=== PATIENT | female | born 1980 | race Caucasian/White ===

== ENCOUNTER 2022-12-23 10:51 | Emergency (ER) | payer OTHER, SELFPAY ==
[2022-12-23 11:08] VITALS: BP 137/94; PULSE 103; RESP 18; TEMP 36.3; O2SAT 98
--- NOTE | 2022-12-23 11:28 | ED_ITS ---
HPI - Back Pain/Injury General Chief Complaint: Back Injury/Pain Stated Complaint: Lower back pain Time Seen by Provider: 12/23/22 11:18 History of Present Illness HPI Narrative: This 42-year-old female comes in with shocks of pain that occur in her low back and sometimes radiate down her left leg. She is from [place] and does speak sufficient anguish. She states that she had symptoms like this 5 years ago and did have an MRI showing lumbar radiculopathy at L5 and S1. She states that there was no recent injury event or strenuous activity. Her symptoms began yesterday. She does not report pain and states that she does not feel pain so much but has a feeling of a shock or jolt that occurs occasionally. She is otherwise in good health. Related Data Previous Rx's Medication Instructions Recorded cyclobenzaprine 10 mg tablet 10 mg PO TID #15 tabs 12/23/22 ketorolac 10 mg tablet 10 mg PO Q8H 5 days #15 tabs 12/23/22 methylprednisolone 4 mg tablets in See Rx Instructions PO .COMPLEX 12/23/22 a dose pack (Medrol (Ihsan)) #21 ea Allergies Allergy/AdvReac Type Severity Reaction Status Date / Time No Known Drug Allergies Allergy Verified 12/23/22 11:07 Review of Systems Status of ROS: Reports: 10 or more systems reviewed and unremarkable except as noted in History and below Narrative: Constitutional: No fevers, no weight gain or loss. Eyes: No discharge. No vision changes. HENT: No congestion, no sore throat, no ear pain. Cardiovascular: No chest pain, no palpitations. Respiratory: No shortness of breath, no wheezes, no cough. Gastrointestinal: No abdominal pain, no vomiting, no diarrhea. Genitourinary: No dysuria, no hematuria. Musculoskeletal: Normal range of motion. Low back pain as described above. Skin: No rashes, no pruritis. Neurological: No dizziness, weakness, sensory change, speech change. Endo/Heme/Allergies: No bruising or bleeding. No polydipsia. Pysch: no suicidality, no anxiety, no insomnia. All other systems reviewed and are negative. Exam Narrative: Exam Narrative: Constitutional: Well-developed, well-nourished, no acute distress. HEENT: Normocephalic, atraumatic. Neck: Normal range of motion. Nontender. Supple. Heart: Regular. No murmurs. Normal rate. Intact distal pulses. Lungs: Clear to auscultation. No chest discomfort. No wheezes, rhonchi, or rales. Abdomen: Normal bowel sounds. Nontender. No rebound tenderness. Genitalia: Deferred. Back: Patient reports symptoms in the low back that occasionally radiates down her left leg. Extremities: Normal range of motion. No injury. Skin: Intact. No rash. Warm. No erythema or pallor. Neurologic: No altered sensation. No weakness. Alert and oriented. Psychiatric: No suicidality. No anxiety or depression. No insomnia. Nursing notes and vitals signs are reviewed. Const: Vital Signs, click to edit/add: Vital Signs - 24 hr 12/23/22 11:08 Temperature 97.4 F L Pulse Rate [Right Pulse Oximeter] 103 H Respiratory Rate 18 Blood Pressure [Ri ght Upper Arm] 137/94 H Pulse Oximetry 98 Oxygen Delivery Me thod Room Air Course Vital Signs Vital signs: Initial Vital Signs Temperature 97.4 F L 12/23/22 11:08 Temperature Source Temporal Artery Scan 12/23/22 11:08 Pulse Rate 103 H 12/23/22 11:08 Respiratory Rate 18 12/23/22 11:08 Blood Pressure 137/94 H 12/23/22 11:08 Blood Pressure Mean 108 H 12/23/22 11:08 Blood Pressure Position Sitting 12/23/22 11:08 Pulse Oximetry 98 12/23/22 11:08 Oxygen Delivery Method Room Air 12/23/22 11:08 Vital Signs Temperature 97.4 F L 12/23/22 11:08 Pulse Rate 103 H 12/23/22 11:08 Respiratory Rate 18 12/23/22 11:08 Blood Pressure 137/94 H 12/23/22 11:08 Pulse Oximetry 98 12/23/22 11:08 Oxygen Delivery Method Room Air 12/23/22 11:08 Temperature 97.4 F L 12/23/22 11:08 Pulse Rate 103 H 12/23/22 11:08 Respiratory Rate 18 12/23/22 11:08 Blood Pressure 137/94 H 12/23/22 11:08 Pulse Oximetry 98 12/23/22 11:08 Oxygen Delivery Method Room Air 12/23/22 11:08 MDM - Back Pain/Injury MDM Narrative Medical decision making narrative: This patient comes in with symptoms that are recurrent from an episode about 5 years ago at which time MRI showed evidence of a lumbar radiculopathy at L5 and S1. There was no specific injury event or strenuous activity that mandates imaging studies at this time. Patient does not appear to be in significant discomfort but states that she does not typically feel pain in this area like most people might. She did received prescription for Toradol, Flexeril, and Medrol Dosepak. Advised her to [facility] for ongoing management and diagnosis as needed. Discharge Plan Discharge Clinical Impression: Lumbar radiculopathy Patient Disposition: Home, Self-Care Condition: Unchanged Additional Instructions: Take medication as needed and indicated. Follow [facility] with [facility] for ongoing diagnosis and management. Call [phone] for appointment. Return if worsening. Prescriptions: New cyclobenzaprine 10 mg tablet 10 mg PO TID Qty: 15 0RF ketorolac 10 mg tablet 10 mg PO Q8H 5 Days Qty: 15 0RF methylprednisolone [Medrol (Ihsan)] 4 mg tablets,dose pack See Rx Instructions .ROUTE .COMPLEX Qty: 21 0RF Rx Instructions: orally per package directions Stand Alone Forms: [facility] Info Instructions
== END 2022-12-23 11:50 | disposition home or self-care (01) ==
PROVIDERS: Emergency Provider Emergency Medicine Emergency Medical Services
DX: M54.16 Radiculopathy, lumbar region (principal)
CPT/HCPCS: 99283; 99284

== ENCOUNTER 2023-02-25 09:50 | Outpatient (CLI) | payer OTHER, SELFPAY | END 2023-02-25 09:51 | disposition home or self-care (01) | LOC: NFLDREF 02-28 14:27 | PROVIDERS: PCP Family Medicine; Referring Provider Family Medicine; Visit Provider Family Medicine | DX: E78.5 Hyperlipidemia, unspecified (principal); R63.5 Abnormal weight gain | CPT/HCPCS: 80053; 80061; 84443 ==

== ENCOUNTER 2023-03-05 07:21 | Outpatient (CLI) | payer OTHER, SELFPAY ==
--- NOTE | 2023-03-05 07:15 | CRLHL7_ITS ---
For Patients: As a result of the Century Cures Act, medical imaging exams and procedure reports are released immediately into your electronic medical record. You may view this report before your referring provider. If you have questions, please contact your health care provider. INDICATION: Feet pain/numbness. TECHNIQUE : Lumbar spine MRI without contrast. The following sequences were obtained: Sagittal T1, T2 weighted and STIR sequences. Axial T1 and T2 weighted sequences. COMPARISON: None. FINDINGS : Five lumbar type vertebral bodies, with the last fully formed disc space designated as L5-S1. Normal lumbar lordotic curve. No recent compression fracture or marrow replacing process. Lower cord/conus signal is normal. The conus terminates at a normal location. No intradural lesion. No extraspinal soft tissue abnormalities. Discs/Endplates: L5-S1 mild disc height loss and disc desiccation. The remaining discs are within normal limits. Findings at individual levels as follows: T11-12: No spinal canal or neural foraminal stenosis. T12-L1: No spinal canal or neural foraminal stenosis. L1-2: Tiny left central protrusion minimally flattens the thecal sac. No spinal canal or neural foraminal stenosis. L2-3: No spinal canal or neural foraminal stenosis. L3-4: No spinal canal or neural foraminal stenosis. L4-5: Shallow right central protrusion flattens the thecal sac. No spinal canal or neural foraminal stenosis. L5-S1: A 7 millimeter right central protrusion impinges the traversing right S1 nerve root within the subarticular recess. No spinal canal or neural foraminal stenosis Imaged SI joints: Within normal limits. Imaged sacrum: Within normal limits. IMPRESSION: 1. At L5-S1, a 7 millimeter right central protrusion impinges the traversing right S1 nerve root. No spinal canal/neural foraminal stenosis or impingement of neural structures elsewhere. Dictated by Tez Sal MD @ 03/05/2023 3:55:15 PM (Electronically Signed)
== END 2023-03-05 07:22 | disposition home or self-care (01) ==
PROVIDERS: PCP Family Medicine; Visit Provider Family Medicine
DX: R20.0 Anesthesia of skin (principal); M54.17 Radiculopathy, lumbosacral region
CPT/HCPCS: 72148

== ENCOUNTER 2023-04-09 13:26 | Outpatient (RCR) | payer OTHER, SELFPAY | END 2023-07-18 09:59 | disposition home or self-care (01) | PROVIDERS: PCP Family Medicine; Visit Provider Physician Assistant Surgical | DX: M72.2 Plantar fascial fibromatosis (principal); M79.672 Pain in left foot; M79.671 Pain in right foot; R26.2 Difficulty in walking, not elsewhere classified; R53.1 Weakness; Z51.89 Encounter for other specified aftercare | CPT/HCPCS: 97110; 97161 ==

== ENCOUNTER 2023-05-20 11:21 | Outpatient (CLI) | payer OTHER, SELFPAY ==
--- NOTE | 2023-05-20 11:30 | CRLHL7_ITS ---
For Patients: As a result of the Cures Act, medical imaging exams and procedure reports are released immediately into your electronic medical record. You may view this report before your referring provider. If you have questions, please contact your health care provider. BILATERAL DIGITAL SCREENING MAMMOGRAM WITH TOMOSYNTHESIS AND COMPUTER-AIDED DETECTION CLINICAL HISTORY: Routine screening exam. COMPARISON: None. TECHNIQUE: Digital mammogram in CC and MLO projections including computer-aided detection (CAD). Tomosynthesis utilized. BREAST COMPOSITION: The breasts are heterogeneously dense, which may obscure small masses. FINDINGS: RIGHT Breast: Focal asymmetric density within the lower outer quadrant 3 cm from the nipple. LEFT Breast: No suspicious findings. IMPRESSION: RIGHT breast asymmetry/mass. RECOMMENDATIONS: Additional mammographic views of the RIGHT breast including 3D spot compression CC/MLO. RIGHT breast ultrasound may also be required. BI-RADS Category 0: Incomplete: Need Additional Imaging Evaluation and/or Prior Mammograms for Comparison [facility] will contact the patient for follow-up. A lay language report of this examination will be provided to the patient. Dictated by Fabian Benton MD @ 05/20/2023 12:13:59 PM erica/Dictated by: Fabian Benton MD @ 05/20/2023 12:13:00 PM (Electronically Signed)
== END 2023-05-20 11:22 | disposition home or self-care (01) ==
LOC: MAMMO 11:22
PROVIDERS: PCP Family Medicine; Visit Provider Family Medicine
DX: Z12.31 Encounter for screening mammogram for malignant neoplasm of breast (principal); N63.10 Unspecified lump in the right breast, unspecified quadrant; R92.2 Inconclusive mammogram
CPT/HCPCS: 77063; 77067; 84270; 84402; 84403

== ENCOUNTER 2023-05-27 09:16 | Outpatient (CLI) | payer OTHER, SELFPAY ==
--- NOTE | 2023-05-27 09:15 | CRLHL7_ITS ---
For Patients: As a result of the Century Cures Act, medical imaging exams and procedure reports are released immediately into your electronic medical record. You may view this report before your referring provider. If you have questions, please contact your health care provider. INDICATION: fatigue COMPARISON: none TECHNIQUE: 2D calix scale and color Doppler images were acquired of the pelvis using a transabdominal and transvaginal approach. FINDINGS: Sonographic images demonstrate a normal size and smooth outer contour of the uterus. Uterus measures 6.1 cm in length by 3.0 cm in AP diameter by 4.1 cm in transverse dimension. Coarse calcification within the lower uterine segment measuring 3 millimeters. The endometrial lining measures 6 mm in composite thickness. The right ovary measures 2.8 x 1.3 x 1.9 cm in size and the left ovary measures 2.4 x 0.8 x 1.3 cm. The ovaries demonstrate normal arterial and venous blood flow on color Doppler analysis. Trace physiologic free fluid. IMPRESSION: Ovaries are normal. No adnexal mass. 3 millimeter calcification lower uterine segment considered incidental. Dictated by Fabian Benton MD @ 05/27/2023 11:21:27 AM (Electronically Signed)
== END 2023-05-27 09:17 | disposition home or self-care (01) ==
LOC: US 09:17
PROVIDERS: PCP Family Medicine; Visit Provider Physician Assistant
DX: R53.83 Other fatigue (principal); R68.82 Decreased libido
CPT/HCPCS: 76830; 76856

== ENCOUNTER 2023-06-09 09:25 | Outpatient (CLI) | payer OTHER, SELFPAY ==
--- NOTE | 2023-06-09 10:15 | CRLHL7_ITS ---
For Patients: As a result of the Cures Act, medical imaging exams and procedure reports are released immediately into your electronic medical record. You may view this report before your referring provider. If you have questions, please contact your health care provider. DIGITAL DIAGNOSTIC RIGHT MAMMOGRAM USING TOMOSYNTHESIS AND COMPUTER-AIDED DETECTION RIGHT BREAST ULTRASOUND CLINICAL HISTORY: RIGHT breast mass/asymmetry. COMPARISON: 05/20/2023. TECHNIQUE: Digital RIGHT mammogram in two projections. Tomosynthesis and CAD utilized. Real-time ultrasound imaging of RIGHT breast with imaging documentation. BREAST COMPOSITION: The breasts are heterogeneously dense, which may obscure small masses. FINDINGS: 3D spot compression CC/MLO RIGHT breast mammogram images submitted. Decreased conspicuity of focal asymmetry within the RIGHT breast. No architectural distortion. No suspicious calcifications. Targeted RIGHT breast ultrasound performed 7 o`clock 3 cm from the nipple. Normal dense tissue is present. No suspicious findings. IMPRESSION: No evidence of malignancy. RECOMMENDATIONS: Annual BILATERAL screening mammography. Results and recommendations discussed with the patient. BI-RADS Category 2: Benign A lay language report of this examination will be provided to the patient. Dictated by Fabian Benton MD @ 06/09/2023 10:33:05 AM jj/Dictated by: Fabian Benton MD @ 06/09/2023 10:33:00 AM (Electronically Signed)
--- NOTE | 2023-06-09 10:15 | CRLHL7_ITS ---
For Patients: As a result of the Cures Act, medical imaging exams and procedure reports are released immediately into your electronic medical record. You may view this report before your referring provider. If you have questions, please contact your health care provider. PLEASE SEE DIGITAL DIAGNOSTIC RIGHT MAMMOGRAM PERFORMED SAME DAY [email or web address] [email or web address]/Dictated by: Fabian Benton MD @ 06/09/2023 10:33:00 AM (Electronically Signed)
== END 2023-06-09 09:26 | disposition home or self-care (01) ==
LOC: MAMMO 09:25
PROVIDERS: PCP Family Medicine; Visit Provider Family Medicine
DX: N63.10 Unspecified lump in the right breast, unspecified quadrant (principal); R92.8 Other abnormal and inconclusive findings on diagnostic imaging of breast; R92.2 Inconclusive mammogram
CPT/HCPCS: 76642; 77065; G0279

== ENCOUNTER 2024-07-21 10:24 | Outpatient (CLI) | payer BC, SELFPAY ==
--- NOTE | 2024-07-21 10:45 | CRLHL7_ITS ---
For Patients: As a result of the Century Cures Act, medical imaging exams and procedure reports are released immediately into your electronic medical record. You may view this report before your referring provider. If you have questions, please contact your health care provider. DIGITAL DIAGNOSTIC BILATERAL MAMMOGRAM USING TOMOSYNTHESIS AND COMPUTER-AIDED DETECTION CLINICAL HISTORY: BILATERAL breast pain. COMPARISON: 06/09/23, 05/20/23, TECHNIQUE: Digital BILATERAL mammogram in four projections with computer-aided detection. Tomosynthesis was used in this interpretation. BREAST COMPOSITION: The breasts are heterogeneously dense, which may obscure small masses. FINDINGS: 3D CC/MLO BILATERAL mammogram images submitted. No suspicious mass or architectural distortion. No suspicious calcifications or adenopathy. IMPRESSION: Normal BILATERAL mammograms. No suspicious findings. No evidence of malignancy. No significant change since the prior studies. RECOMMENDATIONS: Routine screening mammography. A lay language report of this examination will be provided to the patient. BI-RADS Category 2: Benign Dictated by Fabian Benton MD @ 07/21/2024 11:32:59 AM jj/Dictated by: Fabian Benton MD @ 07/21/2024 11:33:00 AM (Electronically Signed)
== END 2024-07-21 10:25 | disposition home or self-care (01) ==
LOC: MAMMO 10:24
PROVIDERS: PCP Family Medicine; Visit Provider Physician Assistant
DX: R92.333 Mammographic heterogeneous density, bilateral breasts (principal)
CPT/HCPCS: 77066; G0279